=== PATIENT | female | born 1975 | race Hispanic/Latino ===

== ENCOUNTER 2022-09-19 03:49 | Emergency (ER) | payer MEDICAID, OTHER ==
[~2022-09-19] VITALS: Ht 157.5 cm; Wt 115.2 kg
[2022-09-19 04:18] LABS: BASOPHILS % (AUTO) 0.4 % (0.0-5.0); EOSINOPHILS % (AUTO) 1.4 % (0.0-8.0); HEMATOCRIT 33.5 % (36-48); LYMPHOCYTES % (AUTO) 7.5 % (21.0-51.0); MEAN CORPUSCULAR HGB CONC 33.7 g/dL (32.0-36.0); MEAN CORPUSCULAR VOLUME 82.9 fL (79-99); MONOCYTES % (AUTO) 6.5 % (3.0-13.0); NEUTROPHILS % (AUTO) 83.3 % (40.0-77.0); PLATELET COUNT (AUTO) 242 K/uL (130-400); RED BLOOD CELL COUNT(AUTO) 4.04 MIL/uL (4.00-5.50); RED CELL DISTRIBUTION WIDTH 14.6 % (11.0-15.5); WHITE BLOOD COUNT (AUTO) 9.2 K/uL (4.8-10.8)
[2022-09-19] MEDS ORDERED: CEFTRIAXONE 2GM VIAL ONE (04:23)
[2022-09-19 04:25] LABS: APPEARANCE,URINE CLEAR (CLEAR); BILIRUBIN,URINE NEGATIVE (NEGATIVE); COLOR,URINE LIGHT-YELLOW (YELLOW); GLUCOSE, URINE (UA) >=1000 mg/dL (NEGATIVE); KETONES,URINE NEGATIVE (NEGATIVE); LEUKOCYTE ESTERASE ,URINE NEGATIVE Leu/uL (NEGATIVE); NITRATE,URINE 2+ (NEGATIVE); OCCULT BLOOD,URINE NEGATIVE (NEGATIVE); PH,URINE 5.5 (5.0-8.0); PROTEIN,URINE 10 mg/dL (NEGATIVE); UROBILINOGEN,URINE 0.2 mg/dL (0.2-1.0)
[2022-09-19 04:28] LABS: MUCUS,URINE RARE LPF (None Seen); RBC,URINE 0-1 /HPF (0-1); SQUAMOUS EPITHELIAL CELL,UR RARE /HPF (0-2)
[2022-09-19] MEDS ORDERED: 0.9%NACL 1000ML 1,503 ML IV ONE ×2 (04:30→04:33)
[2022-09-19] MEDS ORDERED: CEFTRIAXONE 1G VIAL IVP ONE (04:30)
[2022-09-19 04:33] LABS: ALBUMIN 3.2 g/dL (3.5-5.0); CREATININE 1.1 mg/dL (0.5-1.5); TOTAL PROTEIN, SERUM 7.8 g/dL (6.0-8.3)
[2022-09-19] MEDS ORDERED: KETOROLAC 15MG/ML VIAL (15MG/ML) ONE (04:51)
[2022-09-19] MEDS ORDERED: KETOROLAC 15MG/ML VIAL (15MG/ML) IV ONE (05:00)
[2022-09-19] MEDS ORDERED: INSULIN HUMULIN R 100 UNIT/ML 3ML ONE (06:28)
[2022-09-19] MEDS ORDERED: INSULIN HUMULIN R 100 UNIT/ML 3ML IV ONE (06:30)
[2022-09-19] MEDS ORDERED: CEFTRIAXONE 2GM VIAL IVP ONE (06:30)
[2022-09-19] MEDS ORDERED: CEPH500C2 PO (07:32)
[2022-09-19] MEDS ORDERED: FAMO-136 PO (07:32)
[2022-09-19 07:46] VITALS: BP 132/69
== END 2022-09-19 07:49 | disposition home or self-care (01) ==
LOC: EDH 03:49
DX: N39.0 Urinary tract infection, site not specified (principal); I10 Essential (primary) hypertension; E11.9 Type 2 diabetes mellitus without complications; E03.9 Hypothyroidism, unspecified; Z90.49 Acquired absence of other specified parts of digestive tract; Z98.890 Other specified postprocedural states; Z88.8 Allergy status to other drugs, medicaments and biological substances
CPT/HCPCS: 99285; 96374; 96361; 96375; 80053; 85025; 87040 ×2; 87077 ×2; 87088; 87186 ×2; 82948; 83605 ×2; 81001; 36415; J1815; J7030; J0696; J1885

== ENCOUNTER 2022-11-23 14:59 | Emergency (ER) | payer MEDICAID ==
[~2022-11-23] VITALS: Ht 160 cm; Wt 113.4 kg
[~2022-11-23 14:59] MED LIST: CEPH500C2 PO; FAMO-136 PO
[2022-11-23 16:10] LABS: BASOPHILS % (AUTO) 0.3 % (0.0-5.0); EOSINOPHILS % (AUTO) 3.2 % (0.0-8.0); HEMATOCRIT 33.9 % (36-48); LYMPHOCYTES % (AUTO) 12.9 % (21.0-51.0); MEAN CORPUSCULAR HEMOGLOBIN 27.3 pg (27.0-33.0); MEAN CORPUSCULAR VOLUME 82.7 fL (79-99); MONOCYTES % (AUTO) 4.7 % (3.0-13.0); NEUTROPHILS % (AUTO) 77.9 % (40.0-77.0); PLATELET COUNT (AUTO) 251 K/uL (130-400)
[2022-11-23 16:46] LABS: ALBUMIN 2.2 g/dL (3.5-5.0); POTASSIUM 3.6 mmol/L (3.5-5.1); TOTAL PROTEIN, SERUM 7.6 g/dL (6.0-8.3)
[2022-11-23] MEDS ORDERED: 0.9%NACL 1000ML 1,000 ML IV ONE ×2 (17:00→18:30)
[2022-11-23] MEDS ORDERED: ONDANSETRON 4MG INJ IVP ONE (17:00)
[2022-11-23] MEDS ORDERED: MAG/ALUM/SIMETH 30 ML UDCUP PO ONE (18:30)
[2022-11-23] MEDS ORDERED: LIDOCAINE HCL 2% VISCOUS 15 ML UDCUP PO ONE (18:30)
[2022-11-23] MEDS ORDERED: IOHEXOL-350 75 ML VIAL IV ONE (19:17)
[2022-11-23] MEDS ORDERED: INSULIN HUMULIN R 100 UNIT/ML 3ML IV ONE (21:00)
[2022-11-23] MEDS ORDERED: FAMOTIDINE 20MG VIAL IV ONE (21:00)
[2022-11-23 21:18] LABS: APPEARANCE,URINE CLEAR (CLEAR); BILIRUBIN,URINE NEGATIVE (NEGATIVE); COLOR,URINE LIGHT-YELLOW (YELLOW); GLUCOSE, URINE (UA) >=1000 mg/dL (NEGATIVE); KETONES,URINE NEGATIVE (NEGATIVE); LEUKOCYTE ESTERASE ,URINE NEGATIVE Leu/uL (NEGATIVE); NITRATE,URINE NEGATIVE (NEGATIVE); OCCULT BLOOD,URINE NEGATIVE (NEGATIVE); PH,URINE 5.5 (5.0-8.0); PROTEIN,URINE NEGATIVE (NEGATIVE); UROBILINOGEN,URINE 0.2 mg/dL (0.2-1.0)
[2022-11-23 21:22] LABS: BACTERIA,URINE FEW /HPF (None Seen); MUCUS,URINE FEW LPF (None Seen); SQUAMOUS EPITHELIAL CELL,UR FEW /HPF (0-2)
[2022-11-23 21:27] VITALS: BP 123/60
[2022-11-23] MEDS ORDERED: DICY20TA2 PO (21:49)
[2022-11-23] MEDS ORDERED: OMEP20CA12 PO (21:49)
== END 2022-11-23 21:57 | disposition home or self-care (01) ==
LOC: EDH 14:59
DX: K52.9 Noninfective gastroenteritis and colitis, unspecified (principal); E11.65 Type 2 diabetes mellitus with hyperglycemia; R10.13 Epigastric pain; I10 Essential (primary) hypertension; E03.9 Hypothyroidism, unspecified; Z90.49 Acquired absence of other specified parts of digestive tract; Z20.822 Contact with and (suspected) exposure to COVID-19
CPT/HCPCS: 99285; 74177; 76705 ×2; 96374; 87635; 96361; 96375; 80053; 83690; 85025; 87804 ×2; 82948 ×3; 82010; 81001; 81025; 36415; 93005; J1815; C9803; J7030; J2405; Q9967; S0028; J3490

== ENCOUNTER 2024-11-13 23:16 | Emergency (ER) | payer BC, MEDICAID ==
[~2024-11-13] VITALS: Ht 160 cm; Wt 115.7 kg
[~2024-11-13 23:16] MED LIST changes: +DICY20TA2 PO; +OMEP20CA12 PO
[2024-11-14] MEDS: ondanSETRON 4MG INJ IVP PRN (00:23)
[2024-11-14] MEDS: 0.9%NACL 1000ML 1,000 ML IV SCH (00:23)
--- NOTE | 2024-11-14 00:23 | NUR ---
ZOFRAN 4MG AND NS 1000 ML BOLUS ADMINISTERED AT THIS TIME ORDERED
[2024-11-14 00:39] LABS: CREATININE 1.1 mg/dL (0.5-1.0); POTASSIUM 4.4 mmol/L (3.5-5.1)
[2024-11-14 00:52] LABS: BASOPHILS # (AUTO) 0.05 K/uL (0.00-0.20); BASOPHILS % (AUTO) 0.6 % (0.0-5.0); EOSINOPHILS % (AUTO) 2.4 % (0.0-8.0); HEMATOCRIT 30.6 % (36-48); IMMATURE GRANULOCYTE ABSOLUTE 0.05 K/uL (0-1); LYMPHOCYTES # (AUTO) 1.2 K/uL (1.0-4.8); LYMPHOCYTES % (AUTO) 14.1 % (21.0-51.0); MEAN CORPUSCULAR HEMOGLOBIN 26.4 pg (27.0-33.0); MEAN CORPUSCULAR VOLUME 79.9 fL (79-99); MONOCYTES # (AUTO) 0.5 K/uL (0.1-1.0); MONOCYTES % (AUTO) 6.2 % (3.0-13.0); NEUTROPHILS # (AUTO) 6.4 K/uL (1.8-7.7); NEUTROPHILS % (AUTO) 76.1 % (40.0-77.0); PLATELET COUNT (AUTO) 220 K/uL (130-400); RED BLOOD CELL COUNT(AUTO) 3.83 MIL/uL (4.00-5.50); RED CELL DISTRIBUTION WIDTH 15.5 % (11.0-15.5); WHITE BLOOD COUNT (AUTO) 8.4 K/uL (4.8-10.8)
--- NOTE | 2024-11-14 01:07 | ERN ---
ED Note History of Present Illness Stated Complaint: SOB, CHEST DISCOMFORT, NAUSEA Chief Complaint: Chest Pain Time Seen by MD: 23:55 Dictation: Patient is a 49-year-old came in via EMS with complaints of chest pain nausea vomiting and diffuse abdominal pain onset yesterday. She states her blood sugar has been h high, greater than 350 for the last several weeks she has a an appointment next week with her doctor for management of her diabetes. She is currently on Ozempic and Lantus. No history of CAD chest pain stents. She states she had been able to eat however she has been vomiting. Allergies: Coded Allergies: metoclopramide (Unverified Allergy, Unknown, 01/03/20) Home Meds Active Scripts Dicyclomine HCl (Bentyl) 20 Mg Tab, 20 MG PO BID for abd pain for 10 Days, #20 TAB Prov:GUERO ARTHUR 11/23/22 Omeprazole (Omeprazole) 20 Mg Capsule.dr, 20 MG PO DAILY for GERD for 14 Days, #20 CAP Prov:GUERO ARTHUR 11/23/22 Famotidine (Pepcid) 20 Mg Tablet, 20 MG PO BID for 30 Days, #60 TAB Prov:KATEY SHHA MD 09/19/22 Cephalexin (Cephalexin) 500 Mg Capsule, 500 MG PO TID for 10 Days, #30 CAP Prov:KATEY SHAH MD 09/19/22 Past Medical History Past Medical History: Anxiety, Diabetes-Type II, Hypertension, Hypothyroid Surgical History: Cholecystectomy, Surgical History Other: D&C Social History: Negative History: Not Applicable RN Note Reviewed/Agreed w/PFSH: Yes Review of System Dictation CONSTITUTIONAL: Negative except for HPI HEAD/FACE: Negative except for HPI EENT: Negative except for HPI RESPIRATORY: Negative except for HPI chest pain nonradiating GASTROINTESTINAL/ABDOMINAL: Negative except for HPI diffuse abdominal pain nausea vomiting GENITOURINARY: Negative except for HPI MUSCULOSKELETAL: Negative except for HPI INTEGUMENTARY: Negative except for HPI NEUROLOGICAL/PSYCH: Negative except for HPI HEMATOLOGIC/LYMPHATIC: Negative except for HPI All Systems Negative, Except as noted above. 13 point review of systems assessed and all negative except for above. Initial Vital Sign VS Vital Signs Date Time Temp Pulse Resp B/P (MAP) Pulse Ox O2 Delivery O2 Flow Rate FiO2 5/4/25 23:20 99.1 105 16 110/56 98 Room Air 0 11/13/24 23:57 21 Physical Exam Dictation Normal exam Vital Signs reviewed General Appearance: Alert, oriented x 3, mild acute distress, well developed, nourished. Morbidly obese Head and Face: non-traumatic. Eyes: PERRL, pink conjunctivas, eyelid no trauma, anterior chamber with arcus senilis. Ears: Pinnas intact and no signs of trauma or erythema ear canals clear and no discharge TM no erythema Nose: No discharge, no bleeding. Oropharynx: Mouth normal, tongue pink, pharynx clear,no erythema, tonsils no exudates, no abscesses noted, mucous membrane moist Neck: Supple, non-tender, no thyromegaly, no masses, no JVD, no bruits Breast:Deferred Chest:No tenderness, no crepitus, no paradoxical movement, no retractions Lungs:Clear, well-ventilated, symmetric, no rales, no wheezing, no rhonchi, no stridor, good breath sounds bilaterally Heart: Regular rate, regular rhythm, no murmur, no gallops Vascular: no peripheral edema, Abdomen: Soft, positive bowel sounds, nondistended, no guarding, nontender, no rebound, no masses no hepatomegaly, no splenomegaly, no Byrd's sign, no hernias. Focal tenderness Rectal: Deferred Genital: Deferred Neurological: Normal speech, motor function intact, sensory function intact Musculoskeletal: Neck nontender, full range of motion, back nontender, full range of motion, Extremities: nontender, full range of motion Skin: Color pink, dry, no turgor, no rash, no lacerations, no abrasions, no contusions. Lymphatic: Deferred Results (Laboratory/Radiology) Laboratory/Radiology Laboratory Tests Test 11/14/24 00:13 White Blood Count 8.4 K/uL (4.8-10.8) Red Blood Count 3.83 MIL/uL (4.00-5.50) L Hemoglobin 10.1 g/dL (12.0-16.0) L Hematocrit 30.6 % (36-48) L Mean Corpuscular Volume 79.9 fL (79-99) Mean Corpuscular Hemoglobin 26.4 pg (27.0-33.0) L Mean Corpuscular Hemoglobin Concent 33.0 g/dL (32.0-36.0) Red Cell Distribution Width 15.5 % (11.0-15.5) Platelet Count 220 K/uL (130-400) Mean Platelet Volume 11.5 fL (7.5-10.5) H Immature Granulocyte % (Auto) 0.6 % (0-1) Neutrophils (%) (Auto) 76.1 % (40.0-77.0) Lymphocytes (%) (Auto) 14.1 % (21.0-51.0) L Monocytes (%) (Auto) 6.2 % (3.0-13.0) Eosinophils (%) (Auto) 2.4 % (0.0-8.0) Basophils (%) (Auto) 0.6 % (0.0-5.0) Neutrophils # (Auto) 6.4 K/uL (1.8-7.7) Lymphocytes # (Auto) 1.2 K/uL (1.0-4.8) Monocytes # (Auto) 0.5 K/uL (0.1-1.0) Eosinophils # (Auto) 0.20 K/uL (0.00-0.70) Basophils # (Auto) 0.05 K/uL (0.00-0.20) Absolute Immature Granulocyte (auto 0.05 K/uL (0-1) Nucleated Red Blood Cells 0.0 % (0.0-0.19) Sodium Level 131 mmol/L (136-145) L Potassium Level 4.4 mmol/L (3.5-5.1) Chloride Level 97 mmol/L (101-111) L Carbon Dioxide Level 29 mmol/L (21-32) Blood Urea Nitrogen 20 mg/dL (7-18) H Creatinine 1.1 mg/dL (0.5-1.0) H Glomerular Filtration Rate Calc 62 mL/min (>90) Random Glucose 380 mg/dL (70-105) H Whole Blood Ketones Quantitative 0.1 mmol/L (0.0-0.6) Total Calcium 8.2 mg/dL (8.5-10.1) L Troponin I High Sensitivity 9 ng/L (4-50) 0150/CHEST X-RAY NEGATIVE Labs Reviewed?: Yes EKG: (+) NSR EKG Comment: Sinus ED Course ED Course Orders Procedure Category Date Status Time Chest 1vw RAD 5/5/25 Taken 00:10 Cbc With Differential LAB 11/14/24 Complete 00:13 Ketone Blood LAB 11/14/24 Complete Quantitative 00:13 Basic Metabolic Panel LAB 11/14/24 Complete 00:13 Troponin I High LAB 11/14/24 Complete Sensitivity 00:13 Urinalysis Profile LAB 11/14/24 Logged 00:18 0.9%Nacl 1000ml (Ns PHA 11/14/24 In Process 1000ml) 00:30 Ondansetron 4mg Inj PHA 11/14/24 In Process (Zofran 4mg Inj) 00:30 Ondansetron 4mg Inj PHA 11/14/24 Complete (Zofran 4mg Inj) 00:17 0.9%Nacl 1000ml (Ns PHA 11/14/24 Complete 1000ml) 00:17 12 Lead Ekg Tracing- EKG 11/14/24 Logged Technical 01:21 Insulin Regular, PHA 11/14/24 Complete Human 3ml (Humulin R 01:22 Current Medications Medications (Trade) Dose Ordered Sig/Lizeth Route PRN Reason Start Time Stop Time Status Last Admin Dose Admin Insulin Human Regular (humuLIN R 100 UNIT/ML 3ML) 12 unit ONCE STAT IV 11/14/24 01:22 11/14/24 01:34 DC Ondansetron HCl (zoFRAN 4MG INJ) 4 mg Q6H PRN IVP NAUSEA/VOMITING 11/14/24 00:30 11/14/24 23:00 11/14/24 00:23 Ondansetron HCl (zoFRAN 4MG INJ) 4 mg STK-MED ONCE .ROUTE 11/14/24 00:17 11/14/24 00:22 DC Sodium Chloride 1,000 ml @ 1,000 mls/hr Q1H IV 11/14/24 00:30 12/14/24 00:29 11/14/24 00:23 Sodium Chloride 1,000 ml @ As Directed STK-MED ONCE IV 11/14/24 00:17 11/14/24 00:22 DC Vital Signs Date Time Temp Pulse Resp B/P (MAP) Pulse Ox O2 Delivery O2 Flow Rate FiO2 11/13/24 23:57 99.0 104 20 157/74 97 Room Air* 0 21 11/13/24 23:20 99.1 105 16 110/56 98 Room Air 0 HEART Score Response (Comments) Value History: Low suspicion (0) 0 Age: 45-65yrs (+1) 1 Risk Factors: 1-2 risk factors (+1) 1 Initial Troponin: Normal limit (0) 0 Total 2 DX & DISP Departure Condition: Stable Referrals: MARYJO ALLISON (PCP) ALBIN STOCK NP November 14, 2024 01:07
[2024-11-14] MEDS: ondanSETRON 4MG INJ ONE (01:15)
[2024-11-14] MEDS: 0.9%NACL 1000ML 1,000 ML IV ONE (01:15)
[2024-11-14] MEDS: INSULIN humuLIN R 100 UNIT/ML 3ML IV STA (02:09)
[2024-11-14 02:15] LABS: ADD UA MICROSCOPIC YES; APPEARANCE,URINE CLOUDY (CLEAR); BILIRUBIN,URINE NEGATIVE (NEGATIVE); COLOR,URINE LIGHT-YELLOW (YELLOW); GLUCOSE, URINE (UA) >=1000 mg/dL (NEGATIVE); KETONES,URINE NEGATIVE (NEGATIVE); LEUKOCYTE ESTERASE ,URINE NEGATIVE Leu/uL (NEGATIVE); NITRATE,URINE 1+ (NEGATIVE); PH,URINE 5.5 (5.0-8.0); PROTEIN,URINE 30 mg/dL (NEGATIVE); UROBILINOGEN,URINE 0.2 mg/dL (0.2-1.0)
[2024-11-14 02:16] LABS: MUCUS,URINE RARE LPF (None Seen); RBC,URINE 0-1 /HPF (0-1); SQUAMOUS EPITHELIAL CELL,UR FEW /HPF (0-2)
[2024-11-14 03:59] VITALS: BP 136/72; PULSE 90; RESP 18; TEMP 98.9; O2SAT 98
--- NOTE | 2024-11-14 08:05 | EKG ---
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
--- NOTE | 2024-11-14 08:25 | HMCIMG ---
Exam Type: CHEST 1VW Clinical Information: CHEST PAIN Comparison: None Findings: The lungs are clear of infiltrates. The heart is normal in size. The bony and soft tissue structures of the chest are unremarkable. Impression: Clear lungs.
== END 2024-11-14 04:03 | disposition home or self-care (01) ==
LOC: EDH 23:16
DX: R06.02 Shortness of breath (principal); R11.2 Nausea with vomiting, unspecified; R07.89 Other chest pain; F41.9 Anxiety disorder, unspecified; E03.9 Hypothyroidism, unspecified; E11.9 Type 2 diabetes mellitus without complications; I10 Essential (primary) hypertension; Z79.899 Other long term (current) drug therapy; Z90.49 Acquired absence of other specified parts of digestive tract
CPT/HCPCS: 99284; 84484; 80048; 85025; 87086 ×2; 87186; 82948 ×2; 82010; 81001; 36415; 96374; 71045; 96375; 93005; J1815; J7030; J2405; 99285

== ENCOUNTER 2025-02-07 13:35 | Emergency (ER) | payer BC ==
[~2025-02-07] VITALS: Ht 157.5 cm; Wt 117.9 kg
--- NOTE | 2025-02-07 13:58 | ERN ---
General Chief Complaint: Headache Stated Complaint: HEADACHE Time Seen by MD: 13:38 Source: patient History of Present Illness Initial Comments Patient is a 49-year-old female coming in because he states that while out shopping she noticed she had swelling lower extremity. She states that she noticed her ankles a little bit more swollen. She along with this she states that she does have a mild headache as well. Allergies: Coded Allergies: metoclopramide (Unverified Allergy, Unknown, 01/03/20) Home Meds Active Scripts Dicyclomine HCl (Bentyl) 20 Mg Tab, 20 MG PO BID for abd pain for 10 Days, #20 TAB Prov:GUERO ARTHUR 11/23/22 Omeprazole (Omeprazole) 20 Mg Capsule.dr, 20 MG PO DAILY for GERD for 14 Days, #20 CAP Prov:GUERO ARTHUR 11/23/22 Famotidine (Pepcid) 20 Mg Tablet, 20 MG PO BID for 30 Days, #60 TAB Prov:KATEY SHAH MD 09/19/22 Cephalexin (Cephalexin) 500 Mg Capsule, 500 MG PO TID for 10 Days, #30 CAP Prov:KATEY SHAH MD 09/19/22 Past Medical History Past Medical History: Anxiety, Diabetes-Type II, Hypertension, Hypothyroid Past Surgical History: Cholecystectomy, Surgical History Other: D&C Social History Social History: Negative Female( History) History: Not Applicable ROS Dictation CONSTITUTIONAL: No chills, no fever, no weakness, no diaphoresis, no malaise. HEAD/FACE: No signs of trauma. EENT: No eye pain, no blurred vision, no tearing, no double vision, no ear pain, no ear discharge, no nose pain, no nasal congestion, no throat pain, no throat swelling, no mouth pain. RESPIRATORY: No cough, no orthopnea, no SOB, no stridor, no wheezing. CARDIOVASCULAR: chest pain, no edema, no palpitations, no syncope. GASTROINTESTINAL/ABDOMINAL: No abdominal pain, no constipation, no diarrhea, no nausea, no vomiting. GENITOURINARY: No abnormal discharge, no dysuria, no frequent urination, no hem aturia. No complaints of pain in the genitals. MUSCULOSKELETAL: No back pain, no gout, no joint pain, no joint swelling, no mu scle pain, no muscle stiffness, no neck pain. INTEGUMENTARY: No change in color, no change in hair/nails, no dryness, no lesion, no lumps, no rash. NEUROLOGICAL/PSYCH: No anxiety, not depressed, no emotional problem, no headache, no numbness, no pre-existing deficit, no history of seizures, no tremors, no weakness. HEMATOLOGIC/LYMPHATIC: Not anemic, no history of blood clots, no apparent bleeding, no bruising, glands not swollen. All Systems Negative, Except as Noted. Physical Exam Physical Exam Dictation VITAL SIGNS: Reviewed. GENERAL APPEARANCE: Alert, oriented x3, no acute distress, obese. HEAD AND FACE: Non-traumatic. EYES: PERRL, pink conjunctivas, eyelid no trauma, anterior chamber clear. EARS: Pinnas intact and no signs of trauma or erythema. Ear canals clear and no discharge. TMs no erythema. NOSE: No discharge, no bleeding. OROPHARYNX: Mouth normal, teeth no caries, tongue pink. Pharynx clear, no erythema. Tonsils no exudates, no abscesses noted. Mucous membrane moist. NECK: Supple, non-tender, no thyromegaly, no masses, no JVD, no bruits. BREAST: Deferred. CHEST: No tenderness, no crepitus, no paradoxical movement, no retractions. LUNGS: Clear, well-ventilated, symmetric, no rales, no wheezing, no rhonchi, no stridor, good breath sounds bilaterally. HEART: Regular rate, regular rhythm, no murmur, no gallops. VASCULAR: No peripheral edema. ABDOMEN: Soft, positive bowel sounds, nondistended, no guarding, nontender, no rebound, no masses no hepatomegaly, no splenomegaly, no Byrd's sign, no hernias. RECTAL: Deferred. GENITAL: Deferred. NEUROLOGICAL: Normal speech, gross motor function intact, gross sensory function intact. MUSCULOSKELETAL: Neck nontender, full range of motion, back nontender, full range of motion. EXTREMITIES: Nontender, full range of motion. SKIN: Color pink, dry, no turgor, no rash, no lacerations, no abrasions, no contusions. LYMPHATICS: Deferred. Results Laboratory and Microbiology Lab and Micro Result Laboratory Tests Test 02/07/25 13:54 02/07/25 15:10 White Blood Count 7.0 K/uL (4.8-10.8) Red Blood Count 4.01 MIL/uL (4.00-5.50) Hemoglobin 10.1 g/dL (12.0-16.0) L Hematocrit 32.0 % (36-48) L Mean Corpuscular Volume 79.8 fL (79-99) Mean Corpuscular Hemoglobin 25.2 pg (27.0-33.0) L Mean Corpuscular Hemoglobin Concent 31.6 g/dL (32.0-36.0) L Red Cell Distribution Width 14.7 % (11.0-15.5) Platelet Count 236 K/uL (130-400) Mean Platelet Volume 10.5 fL (7.5-10.5) Immature Granulocyte % (Auto) 0.7 % (0-1) Neutrophils (%) (Auto) 75.3 % (40.0-77.0) Lymphocytes (%) (Auto) 15.4 % (21.0-51.0) L Monocytes (%) (Auto) 4.2 % (3.0-13.0) Eosinophils (%) (Auto) 3.7 % (0.0-8.0) Basophils (%) (Auto) 0.7 % (0.0-5.0) Neutrophils # (Auto) 5.3 K/uL (1.8-7.7) Lymphocytes # (Auto) 1.1 K/uL (1.0-4.8) Monocytes # (Auto) 0.3 K/uL (0.1-1.0) Eosinophils # (Auto) 0.26 K/uL (0.00-0.70) Basophils # (Auto) 0.05 K/uL (0.00-0.20) Absolute Immature Granulocyte (auto 0.05 K/uL (0-1) Nucleated Red Blood Cells 0.0 % (0.0-0.19) Sodium Level 139 mmol/L (136-145) Potassium Level 3.6 mmol/L (3.5-5.1) Chloride Level 100 mmol/L (101-111) L Carbon Dioxide Level 30 mmol/L (21-32) Blood Urea Nitrogen 15 mg/dL (7-18) Creatinine 0.9 mg/dL (0.5-1.0) Glomerular Filtration Rate Calc 79 mL/min (>90) Random Glucose 363 mg/dL (70-105) H Total Calcium 9.1 mg/dL (8.5-10.1) Urine Color YELLOW (YELLOW) Urine Appearance CLOUDY (CLEAR) H Urine pH 6.0 (5.0-8.0) Urine Specific [place] 1.026 (1.001-1.031) Urine Protein 100 mg/dL (NEGATIVE) H Urine Glucose (UA) >=1000 mg/dL (NEGATIVE) H Urine Ketones NEGATIVE mg/dL (NEGATIVE) Urine Occult Blood SMALL (NEGATIVE) H Urine Nitrate 2+ (NEGATIVE) H Urine Bilirubin NEGATIVE mg/dL (NEGATIVE) Urine Urobilinogen 0.2 mg/dL (0.2-1.0) Urine Leukocyte Esterase 75 Luz/uL (NEGATIVE) H Urine RBC 2-5 /HPF (0-1) H Urine WBC 26-50 /HPF (0-1) H Urine Squamous Epithelial Cells MOD /HPF (0-2) Urine Bacteria RARE /HPF (None Seen) Urine Other Casts 1 /LPF (None Seen) Labs Reviewed?: Yes MDM MDM: Differential diagnosis: UTI, dehydration, BRANDYN, diabetes mellitus uncontrolled, Rationale: Tests considered and ordered secondary to shared decision making include: Previous outside records reviewed: Old ER visits. Risk of complication and/or morbidity or mortality of patient management: None Medications-Per medication reconciliation Need for hospitalization: Patient does not meet criteria for hospitalization. patient is a 49-year-old female coming in with lower 70 pedal edema long with the she states he has a and having mild headaches. Laboratory workup positive for urinary tract infection elevated glucose and dehydration. Patient will be discharged in stable condition with a diagnosis of dehydration diabetes mellitus hyperglycemia and UTI. ED Course Orders Procedure Category Date Status Time Cbc With Differential LAB 02/07/25 Complete 13:43 Basic Metabolic Panel LAB 02/07/25 Complete 13:43 Urinalysis LAB 02/07/25 Complete W/Microscopic 13:43 Acetaminophen 500mg PHA 02/07/25 Complete Tab (Tylenol 500mg T 14:00 0.9%Nacl 1000ml (Ns PHA 02/07/25 In Process 1000ml) 15:30 Culture Urine GENIA 02/07/25 In Process 15:34 Current Medications Medications (Trade) Dose Ordered Sig/Lizeth Route PRN Reason Start Time Stop Time Status Last Admin Dose Admin Acetaminophen (TYLenol 500MG TAB) 500 mg ONCE ONCE PO 02/07/25 14:00 02/07/25 14:01 DC 02/07/25 14:04 Sodium Chloride 1,000 ml @ 0 mls/hr Q0M IV 02/07/25 15:30 03/09/25 15:29 Vital Signs Date Time Temp Pulse Resp B/P (MAP) Pulse Ox O2 Delivery O2 Flow Rate FiO2 02/07/25 15:17 98.6 88 18 162/85 99 Room Air* 0 21 02/07/25 13:38 98.6 94 18 189/89 99 DX & DISP Disposition: Discharge Departure Impression: Primary Impression: UTI (urinary tract infection) Additional Impressions: Uncontrolled diabetes mellitus, Dehydration Condition: Stable Scripts Cephalexin Monohydrate (Keflex) 500 Mg Cap 1 CAP PO BID for 10 Days, #20 CAP 0 Refills Prov: MARYJO ESCOBAR MD 02/07/25 Additional Instructions: FOLLOW-UP WITH PRIMARY CARE PROVIDER IN 1 TO 2 DAYS. TAKE MEDICATIONS DIRECTED HERE IN THE EMERGENCY ROOM. OKAY TO CONTINUE HOME MEDICATIONS UNLESS OTHERWISE DISCUSSED DURING YOUR VISIT IN THE EMERGENCY ROOM TODAY. RETURN TO YOUR NEAREST EMERGENCY ROOM IF SYMPTOMS WORSEN OR IF THERE IS NO IMPROVEMENT. CALL 911 IF YOU NEED IMMEDIATE ASSISTANCE. TAKE TYLENOL [id number] NEEDED AND IF NO CONTRAINDICATIONS ARE PRESENT. INCREASE ORAL HYDRATION. A WOUND CULTURE OR URINE CULTURE WAS ORDERED HERE IN THE EMERGENCY ROOM DEPARTMENT PLEASE FOLLOW-UP WITH PRIMARY CARE PROVIDER AND ADVISE THEM TO GET REPORTS FROM OUR FACILITY. IF YOU HAD ANY SEAN WRAP/SPLINTS THAT WERE APPLIED HERE, PLEASE DO NOT REMOVE THEM UNTIL YOU SEE YOUR PRIMARY CARE OR SPECIALTY. Referrals: Referrals: GREGORY DUFFY MD (PCP) Time of Disposition: 15:44 MARYJO ESCOBAR MD Feb 07, 2025 13:58
[2025-02-07 13:59] LABS: IMMATURE GRANULOCYTE ABSOLUTE 0.05 K/uL (0-1); NUCLEATED RED BLOOD CELLS 0.0 % (0.0-0.19); PLATELET COUNT (AUTO) 236 K/uL (130-400); RED BLOOD CELL COUNT(AUTO) 4.01 MIL/uL (4.00-5.50); RED CELL DISTRIBUTION WIDTH 14.7 % (11.0-15.5); WHITE BLOOD COUNT (AUTO) 7.0 K/uL (4.8-10.8)
[2025-02-07 14:06] LABS: CREATININE 0.9 mg/dL (0.5-1.0); GLOMERULAR FILTR. RATE CALC 79.0 mL/min (>90); GLUCOSE,RANDOM 363.0 mg/dL (70-105); SODIUM SERUM 139.0 mmol/L (136-145); UREA NITROGEN, BLOOD 15.0 mg/dL (7-18)
[2025-02-07 15:17] VITALS: BP 162/85; PULSE 88; RESP 18; TEMP 98.6; O2SAT 99
[2025-02-07] MEDS ORDERED: 0.9%NACL 1000ML 1,000 ML IV SCH (15:30)
[2025-02-07 15:31] LABS: APPEARANCE,URINE CLOUDY (CLEAR); GLUCOSE, URINE (UA) >=1000 mg/dL (NEGATIVE); LEUKOCYTE ESTERASE ,URINE 75 Leu/uL (NEGATIVE); NITRATE,URINE 2+ (NEGATIVE); OCCULT BLOOD,URINE SMALL (NEGATIVE)
[2025-02-07 15:32] LABS: OTHER CASTS, URINE 1 /LPF (None Seen); SQUAMOUS EPITHELIAL CELL,UR MOD /HPF (0-2)
[2025-02-07] MEDS ORDERED: CEPH500B PO (15:45)
== END 2025-02-07 15:58 | disposition home or self-care (01) ==
LOC: EDH 13:35
DX: N39.0 Urinary tract infection, site not specified (principal); E11.65 Type 2 diabetes mellitus with hyperglycemia; E86.0 Dehydration; E03.9 Hypothyroidism, unspecified; I10 Essential (primary) hypertension; Z79.899 Other long term (current) drug therapy; Z90.49 Acquired absence of other specified parts of digestive tract
CPT/HCPCS: 36415; 80048; 81001; 85025; 87086; 87186; 99283